=== PATIENT | female | born 2000 | race Caucasian/White ===

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

== ENCOUNTER → 2021-06-06 | Outpatient (CLI) | payer OTHER ==
--- NOTE | 2021-06-06 15:28 | XR ---
EXAMINATION TYPE: XR wrist complete LT DATE OF EXAM: 06/06/2021 COMPARISON: None HISTORY: Wrist pain second metacarpal phalangeal joint x1 week TECHNIQUE: 3 view left wrist FINDINGS: Soft tissues appear normal. Joint spaces are preserved. No acute fracture or dislocation is evident. Follow up exams can be performed 7-10 days from acute trauma for continued pain. If there i s pain at the anatomic snuff box, nuclear medicine bone scan would be recommended for additional eval uation. IMPRESSION: 1. Normal 3 view left wrist.
== END | disposition home or self-care (01) ==
LOC: RADXRYALE 14:43
PROVIDERS: ATTEND Internal Medicine
DX: M25.532 Pain in left wrist (principal)

== ENCOUNTER → 2022-12-11 | Outpatient (CLI) | payer OTHER ==
--- NOTE | 2022-12-11 19:18 | US ---
EXAMINATION TYPE: Ultrasound OB <= 14 week fetus DATE OF EXAM: 12/11/2022 12:29 PM COMPARISON: NONE CLINICAL INDICATION: Female, 22 years old with history of Z36.89 ENCOUNTER FOR OTHER SPECIFIED ANTENA CYNTHIA SCR; Confirm gestational age and viability. EXAM PERFORMED: Transabdominal (TA) EXAM MEASUREMENTS: GESTATIONAL AGE / DATING Physician Established: Not yet established Dates by LMP: (13 weeks/1 day) EDC: 06/17/2023 Dates by First Scan: This is first scan Dates by Current Scan for: (14 weeks/0 days) EDC: 06/11/2023 MATERNAL ANATOMY Uterus: 16.7 x 10.7 x 8.5 cm Right Ovary: 3.2 x 2.1 x 1.9 cm Left Ovary: 3.1 x 2.0 x 1.2 cm Post CDS / Adnexa: Appear wnl Presence of free fluid: None seen Presence of corpus luteal cyst: Not seen Presence of subchorionic bleed: No GESTATION / SURVEY CRL: 7.85 cm (14 weeks/0 days) Yolk Sac (normal less than 6mm): Not seen Heart Rate: 133 bpm Rhythm: Normal IUP: Viable IUP Nuchal Translucency 10-14wks (normal less than 3mm): Not well seen Date of LMP: 09/10/2022 IMPRESSION: 1. Single live intrauterine with estimated gestational age of 13 weeks 1 day by LMP. Age by current ultrasound biometry is slightly greater at 14 weeks 0 days. Correlate as to accuracy of reca ll of LMP. 2. Complete survey recommended at 18-20 weeks.
== END | disposition home or self-care (01) ==
LOC: RADUSWWP 11:53
PROVIDERS: ATTEND Obstetrics & Gynecology
DX: Z36.89 Encounter for other specified antenatal screening (principal); Z3A.13 13 weeks gestation of pregnancy
CPT/HCPCS: 76801

== ENCOUNTER 2023-06-07 23:30 | Inpatient (IN) | payer OTHER ==
[2023-06-07] MEDS ORDERED: OXYTOCIN 10 UNIT/ML 1 ML VIAL IM PRN (23:31)
[2023-06-07] MEDS: LACTATED RINGERS 1,000 ML IV SCH (23:35)
[2023-06-08] MEDS ORDERED: diphenhydrAMINE 25 MG CAP PO PRN (00:20)
[2023-06-08] MEDS ORDERED: diphenhydrAMINE 50 MG/ML 1 ML VIAL IVP PRN (00:20)
[2023-06-08] MEDS ORDERED: MEASLES-MUMPS-RUBELLA VACC/PF 12,500 UNIT/0.5 ML VIAL SQ ONE (00:20)
[2023-06-08] MEDS ORDERED: LANOLIN CREAM 5 GM TUBE TOPICAL PRN (00:20)
[2023-06-08] MEDS ORDERED: HYDROCORTISONE 2.5% RECTAL CREAM 30 GM TUBE RECTAL PRN (00:20)
[2023-06-08] MEDS ORDERED: bisacodyL 10 MG SUPP RECTAL PRN (00:20)
[2023-06-08] MEDS ORDERED: SIMETHICONE 80 MG CHEWABLE PO PRN (00:20)
[2023-06-08] MEDS ORDERED: ACETAMINOPHEN TAB 325 MG TAB PO PRN (00:20)
[2023-06-08] MEDS ORDERED: BENZOCAINE/MENTHOL SPRAY 1 GM/SPRAY AEROSOL TOPICAL PRN (00:20)
[2023-06-08] MEDS ORDERED: ZOLPIDEM 5 MG TAB PO PRN (00:20)
--- NOTE | 2023-06-08 00:26 | P.HPOB ---
History of Present Illness H&P Date: 06/08/23 Chief Complaint: Contractions, leaking fluid Please note this H&P is dictated post delivery due to precipitous delivery in triage. This patient is a pleasant 23-year-old 1 para 0 female estimated date of confinement 06/17/2023 estimated gestational age 38-5/7 weeks who had spontaneous rupture membranes at approximately 10:30 this evening. A she contacted me and was instructed to come to labor and delivery. Upon arrival to labor and delivery patient is found to be complete and delivering the infant's head in the presence of the nursing staff. care is per Dr. Matthews and appears to be uncomplicated. Review of Systems Genitourinary: Reports Menstruation: Reports amenorrhea Past Medical History Past Medical History: Asthma History of Any Multi-Drug Resistant Organisms: None Reported Past Surgical History: No Surgical Hx Reported Past Anesthesia/Blood Transfusion Reactions: No Reported Reaction Past Psychological History: ADD/ADHD Smoking Status: Former smoker Past Alcohol Use History: None Reported Past Drug Use History: None Reported - Past Family History Father Family Medical History: No Reported History Medications and Allergies Home Medications Medication Instructions Recorded Confirmed Type Vit No.179/Iron/Folic 1 each PO DAILY 06/08/23 06/08/23 History [ Tablet] Allergies Allergy/AdvReac Type Severity Reaction Status Date / Time Penicillins Allergy Rash/Hives Verified 06/08/23 00:10 Exam Vital Signs Temp Pulse Resp BP 06/08/23 00:11 96.9 F L 56 L 18 133/80 Intake and Output 06/07/23 06/07/23 06/08/23 14:59 22:59 06:59 Other: Weight 83.915 kg - OBG Physical Exam Abdomen: bowel sounds normal, no diffuse tenderness, no bruit present, no guarding noted, no hepatomegaly, no splenomegaly, no mass Uterus: enlarged Results labs show she is A positive, rubella nonimmune, RPR is nonreactive, HIV is nonreactive, hepatitis B and C are negative, group B strep was negative, maternity T 21 was negative, anatomy and growth ultrasounds have been normal Assessment and Plan Assessment: This is a pleasant 23-year-old 1 para 0 female 38 5/7 weeks' gestation with spontaneous rupture membranes in active labor and precipitous delivery of viable female infant. Please see separate dictated delivery note. (1) 38 weeks gestation of Current Visit: Yes Status: Acute Code(s): Z3A.38 - 38 WEEKS GESTATION OF SNOMED Code(s): 63857456 (2) Precipitous delivery, delivered (current hospitalization) Current Visit: Yes Status: Acute Code(s): O62.3 - PRECIPITATE LABOR SNOMED Code(s): 07404442
--- NOTE | 2023-06-08 00:29 | P.PROBDLV ---
Vaginal Delivery Note - . Vaginal Delivery Note: Normal spontaneous vaginal delivery viable female infant Apgars 8 and 9 delivery time is 2330 hrs. Please see dictated H&P on this patient's admission and presentation. In brief summary this is a pleasant 23-year-old 1 para 0 female 38-5/7 weeks who has spontaneous rupture membranes approximately 1 hour prior to admission. Upon arrival to this hospital patient was . Patient is supposedly delivered in the presence of nursing staff in triage. This is a vigorous viable female infant Apgars 8 and 9 delivery time was 2330 hrs. After delivery of the infant the umbilical cord was doubly clamped and cut. The placenta was spontaneously delivered intact. Inspection of the perineum shows bilateral vaginal lacerations with the left being larger than the right. There is brisk bleeding from these lacerations and therefore infiltrated with 1% lidocaine and using a running locked 3-0 Vicryl reapproximate the lacerations and adequate hemostasis is noted at this time. Estimated blood loss is approximately 400 mL. There are no perineal lacerations and does not appear to have any cervical lacerations. All counts are correct 3. There are no complications. and mother will be taken to the birthing suite in satisfactory condition.
[2023-06-08] MEDS ORDERED: OXYTOCIN 30 UNITS/500 ML NS 30 UNIT in SALINE 1 500ML.BAG IV SCH (00:30)
[2023-06-08 00:51] LABS: Basophils % (A) 0 %; Eosinophils % (A) 0 %; HCT 35.7 % (34.0-46.0); HGB 12.6 gm/dL (11.4-16.0); Lymphocytes # (A) 1.3 k/uL (1.0-4.8); Lymphocytes % (A) 10 %; MCH 33.4 pg (25.0-35.0); MCHC 35.4 g/dL (31.0-37.0); MCV 94.4 fL (80.0-100.0); Mean Platelet Volume 10.8; Monocytes # (A) 0.4 k/uL (0-1.0); Monocytes % (A) 3 %; Neutrophils % (A) 86 %; Platelet Count 184 k/uL (150-450); RBC 3.78 m/uL (3.80-5.40); RDW 12.4 % (11.5-15.5); WBC 12.8 k/uL (3.8-10.6)
[2023-06-08] MEDS ORDERED: CARBOPROST TROMETHAMINE 250 MCG/ML 1 ML AMP IM PRN (00:54)
[2023-06-08] MEDS ORDERED: TERBUTALINE 1 MG/ML VIAL SQ PRN (00:54)
[2023-06-08] MEDS ORDERED: miSOPROStoL 200 MCG TAB PO PRN (00:54)
[2023-06-08] MEDS ORDERED: TRANEXAMIC 1,000 MG/100ML-NACL 1,000 MG in EMPTY BAG 1 BAG IV PRN (00:54)
[2023-06-08] MEDS ORDERED: LIDOCAINE 0.5% (PF) 5 MG/ML (50 ML SDV) SQ PRN (00:54)
[2023-06-08] MEDS ORDERED: METHYLERGONOVINE 0.2 MG/ML 1 ML AMP IM PRN (00:54)
[2023-06-08] MEDS: IBUPROFEN 600 MG TAB PO PRN (01:21)
[2023-06-08] MEDS: SENNOSIDES-DOCUSATE SODIUM 1 EACH TAB PO SCH ×2 (08:41→19:58)
[2023-06-08] MEDS: LACTATED RINGERS 1,000 ML IV SCH ×2 (15:05→18:08)
[2023-06-09 06:32] LABS: Basophils % (A) 0 %; Eosinophils # (A) 0.1 k/uL (0-0.7); Eosinophils % (A) 1 %; HCT 35.3 % (34.0-46.0); HGB 12.6 gm/dL (11.4-16.0); Lymphocytes # (A) 2.9 k/uL (1.0-4.8); Lymphocytes % (A) 31 %; MCHC 35.6 g/dL (31.0-37.0); MCV 95.5 fL (80.0-100.0); Mean Platelet Volume 10.2; Monocytes # (A) 0.4 k/uL (0-1.0); Monocytes % (A) 4 %; Neutrophils # (A) 5.7 k/uL (1.3-7.7); Neutrophils % (A) 62 %; Platelet Count 179 k/uL (150-450); RDW 12.7 % (11.5-15.5); WBC 9.3 k/uL (3.8-10.6)
--- NOTE | 2023-06-09 06:49 | P.PNOBGVD ---
Subjective - Subjective Patient reports: Reports appetite normal, Reports voiding normally, Reports pain well controlled, Reports ambulating normally : doing well Objective - Latest Vital Signs Latest vital signs: Vital Signs Temp Pulse Pulse Resp BP Pulse Ox 06/09/23 00:00 97.6 F 58 L 14 106/63 06/08/23 19:51 98.1 F 76 16 128/82 98 06/08/23 16:00 97.5 F L 69 18 128/75 99 06/08/23 11:42 97.9 F 70 16 117/73 06/08/23 08:00 98.2 F 67 16 126/78 Intake and Output 06/08/23 06/08/23 06/09/23 14:59 22:59 06:59 Other: # Voids 1 - Exam Lungs: bilateral: normal Chest: Normal S1, Normal S2 Extremities: Present: normal Abdomen: Present: normal appearance, soft Uterus: Present: normal, firm - Labs Labs: Abnormal Lab Results - Last 24 Hours (Table) 06/09/23 Range/Units 06:04 RBC 3.70 L (3.80-5.40) m/uL Assessment and Plan Assessment: day #1. Patient is resting without complaints and wishes to go home. Vital signs are stable she's afebrile. Uterus is firm nontender and she is having normal lochia. My impression this is a normal course. Plan is to continue routine care discharge home later today (1) 38 weeks gestation of Current Visit: Yes Status: Acute Code(s): Z3A.38 - 38 WEEKS GESTATION OF SNOMED Code(s): 68669714 (2) Precipitous delivery, delivered (current hospitalization) Current Visit: Yes Status: Acute Code(s): O62.3 - PRECIPITATE LABOR SNOMED Code(s): 37222455
--- NOTE | 2023-06-09 06:52 | P.DS ---
Providers Date of admission: 06/07/23 23:31 Expected date of discharge: 06/09/23 Attending physician: Yolanda Matthews Primary care physician: Stated None - Discharge Diagnosis(es) (1) 38 weeks gestation of Current Visit: Yes Status: Acute (2) Precipitous delivery, delivered (current hospitalization) Current Visit: Yes Status: Acute Hospital Course: Please see dictated H&P intimate delivery note on this patient's admission. In brief summary this pleasant 23-year-old 1 para 0 female 38-4/7 weeks gestation admitted to labor and delivery in active labor. Patient precipitously goes on to deliver a viable female . Please see dictated delivery note. day #1 patient without complaints and wishes to go home. Patient's felt be stable for discharge home follow up with Dr. Forde 6 week Procedures: Normal spontaneous vaginal delivery Patient Condition at Discharge: Good Plan - Discharge Summary New Discharge Prescriptions: New Ibuprofen [Motrin] 600 mg PO Q6HR PRN #40 tab PRN Reason: Mild Pain (Scale 1 To 3) No Action Vit No.179/Iron/Folic [ Tablet] 1 each PO DAILY Discharge Medication List Vit No.179/Iron/Folic [ Tablet] 1 each PO DAILY 06/08/23 [History] Ibuprofen [Motrin] 600 mg PO Q6HR PRN #40 tab 06/09/23 [Rx] Follow up Appointment(s)/Referral(s): Yolanda Matthews DO [Doctor of Osteopathic Medicine] - 07/22/23 4:00 pm (PP 07/22/2023 @4:00 Pm) Patient Instructions/Handouts: Vaginal Delivery (DC) Activity/Diet/Wound Care/Special Instructions: No intercourse or anything per vagina for 6 weeks. Please call if any fever, chills, excessive vaginal bleeding, and/or abdominal pain. Discharge Disposition: HOME SELF-CARE
[2023-06-09] MEDS: SENNOSIDES-DOCUSATE SODIUM 1 EACH TAB PO SCH (09:07)
[2023-06-09 09:23] VITALS: BP 135/82; PULSE 66; RESP 16; TEMP 98.3
[2023-06-09] MEDS: IBUPROFEN 600 MG TAB PO PRN (09:59)
== END 2023-06-09 10:15 | disposition home or self-care (01) | DRG 560 ==
LOC: FBPOP 23:30 → 4FBP 23:31
PROVIDERS: ADMIT Obstetrics & Gynecology; ATTEND Obstetrics & Gynecology
PROC: 10E0XZZ Delivery of Products of Conception, External Approach (ICD-10-PCS; principal; 2023-06-08)
PROC: 0UQG7ZZ Repair Vagina, Via Natural or Artificial Opening (ICD-10-PCS; 2023-06-08)
DX: O42.02 Full-term premature rupture of membranes, onset of labor within 24 hours of rupture (principal); O62.3 Precipitate labor; O99.344 Other mental disorders complicating childbirth; O71.4 Obstetric high vaginal laceration alone; J45.909 Unspecified asthma, uncomplicated; F90.9 Attention-deficit hyperactivity disorder, unspecified type; O99.52 Diseases of the respiratory system complicating childbirth; Z37.0 Single live birth; Z3A.38 38 weeks gestation of pregnancy; Z87.891 Personal history of nicotine dependence; Z88.0 Allergy status to penicillin
CPT/HCPCS: 85025; 86850; 86900; 86901; 90707; 99213

== ENCOUNTER 2024-09-13 09:28 | Inpatient (IN) | payer OTHER ==
[2024-09-13] MEDS ORDERED: miSOPROStoL 200 MCG TAB PO PRN (10:24)
[2024-09-13] MEDS ORDERED: CARBOPROST TROMETHAMINE 250 MCG/ML 1 ML AMP IM PRN (10:24)
[2024-09-13] MEDS ORDERED: METHYLERGONOVINE 0.2 MG/ML 1 ML AMP IM PRN (10:24)
[2024-09-13] MEDS ORDERED: OXYTOCIN 10 UNIT/ML 1 ML VIAL IM PRN (10:24)
[2024-09-13] MEDS ORDERED: TRANEXAMIC 1,000 MG/100ML-NACL 1,000 MG in EMPTY BAG 1 BAG IV PRN (10:24)
[2024-09-13] MEDS ORDERED: LIDOCAINE 0.5% (PF) 5 MG/ML (50 ML SDV) SQ PRN (10:24)
[2024-09-13] MEDS ORDERED: miSOPROStoL 200 MCG TAB RECTAL PRN (10:24)
[2024-09-13] MEDS ORDERED: TERBUTALINE 1 MG/ML VIAL SQ PRN (10:24)
[2024-09-13] MEDS ORDERED: OXYTOCIN 30 UNITS/500 ML NS 30 UNIT in SALINE 1 500ML.BAG IV SCH (10:30)
[2024-09-13] MEDS: LACTATED RINGERS 1,000 ML IV SCH (10:50)
[2024-09-13] MEDS: OXYTOCIN 30 UNITS/500 ML NS 30 UNIT in SALINE 1 500ML.BAG IV SCH (10:59)
[2024-09-13 11:53] LABS: Basophils % (A) 0 %; Eosinophils # (A) 0.1 k/uL (0-0.7); Eosinophils % (A) 1 %; HCT 35.9 % (34.0-46.0); HGB 11.6 gm/dL (11.4-16.0); Lymphocytes # (A) 1.7 k/uL (1.0-4.8); Lymphocytes % (A) 14 %; MCH 30.3 pg (25.0-35.0); MCHC 32.2 g/dL (31.0-37.0); Mean Platelet Volume 10.2; Monocytes # (A) 0.6 k/uL (0-1.0); Monocytes % (A) 5 %; Neutrophils # (A) 9.6 k/uL (1.3-7.7); Neutrophils % (A) 79 %; Platelet Count 239 k/uL (150-450); RBC 3.82 m/uL (3.80-5.40); RDW 13.1 % (11.5-15.5); WBC 12.2 k/uL (3.8-10.6)
--- NOTE | 2024-09-13 14:51 | P.HPOB ---
History of Present Illness H&P Date: 09/13/24 Chief Complaint: leaking of fluid Ms. Dominguez is a 24 year old at 36 weeks gestation with EDC of 10/11/24 bay 13 week who presented this morning with complaints of leaking of fluid. Amnisure was positive and the patient was admitted. The has been complicated by a velamentous cord insertion. Growth ultrasound at 32 weeks revealing an efw of 37%ile. Obstetric history: 1 FTVD work-up: blood type A positive, antibody screen negative, rubella immu ne, VDRL non-reactive, HBsAg negative, HIV negative, HCV Ab non-reactive, gonorrhea negative, chlamydia negative, 1 hour GTT wnl. GBS unknown. Past Medical History Past Medical History: Asthma History of Any Multi-Drug Resistant Organisms: None Reported Past Surgical History: No Surgical Hx Reported Past Anesthesia/Blood Transfusion Reactions: No Reported Reaction Past Psychological History: ADD/ADHD Smoking Status: Never smoker Past Alcohol Use History: None Reported Past Drug Use History: None Reported - Past Family History Father Family Medical History: No Reported History Medications and Allergies Home Medications Medication Instructions Recorded Confirmed Type Vit No.179/Iron/Folic 1 each PO DAILY 06/08/23 09/13/24 History [ Tablet] Allergies Allergy/AdvReac Type Severity Reaction Status Date / Time Penicillins Allergy Rash/Hives Verified 09/13/24 09:44 Exam Vital Signs Temp Pulse Resp BP Pulse Ox 09/13/24 11:15 98.6 F 100 16 118/79 97 09/13/24 10:23 98.6 F 100 16 118/79 97 09/13/24 09:32 98.6 F 100 16 118/79 Intake and Output 09/12/24 09/13/24 09/13/24 22:59 06:59 14:59 Other: Weight 90.718 kg Focused physical exam is performed. This is a healthy-appearing in no apparent distress. Breathing is non-labored. Abdomen is gravid and non-tender. Cervical exam is 150/-2 at the time of admission per the OB RN. Extremities non-tender and non-edematous. heart tones are Category I and tocometer is graphing contractions every 2-4 minutes. Results Result Diagrams: 09/13/24 10:45 Abnormal Lab Results - Last 24 Hours (Table) 09/13/24 Range/Units 10:45 WBC 12.2 H (3.8-10.6) k/uL Neutrophils # 9.6 H (1.3-7.7) k/uL Assessment and Plan Assessment: 24 year old at 36 weeks with SROM, GBS unknown Plan: Admit, clear liquid diet, pitocin per protocol, PCN G for GBS ppx, continuous efm and tocometer. Anticipate vaginal delivery.
[2024-09-13] MEDS ORDERED: BENZOCAINE/MENTHOL SPRAY 1 GM/SPRAY AEROSOL TOPICAL PRN (14:53)
[2024-09-13] MEDS ORDERED: ZOLPIDEM 5 MG TAB PO PRN (14:53)
[2024-09-13] MEDS ORDERED: diphenhydrAMINE 25 MG CAP PO PRN (14:53)
[2024-09-13] MEDS ORDERED: diphenhydrAMINE 50 MG CAP PO PRN (14:53)
[2024-09-13] MEDS ORDERED: SIMETHICONE 80 MG CHEWABLE PO PRN (14:53)
[2024-09-13] MEDS ORDERED: diphenhydrAMINE 50 MG/ML 1 ML VIAL IVP PRN ×2 (14:53)
[2024-09-13] MEDS ORDERED: HYDROCORTISONE 2.5% RECTAL CREAM 30 GM TUBE RECTAL PRN (14:53)
[2024-09-13] MEDS ORDERED: LANOLIN CREAM 1 GM TUBE TOPICAL PRN (14:53)
--- NOTE | 2024-09-13 14:53 | P.PROBDLV ---
Vaginal Delivery Note - . Vaginal Delivery Note: DATE OF SERVICE: 09/13/24 PROCEDURE: Normal Vaginal Delivery ATTENDING: Dr. Rosa Guido MD ESTIMATED BLOOD LOSS: 200 mL FINDINGS: VMI, Apgars 9/9. Weight 6 pounds 3.5 ounces (2820 grams) PROCEDURE: Ms. Dominguez is a 24 year old at 36weeks presenting to labor and delivery for spontaneous rupture of membranes. The has been complicated by a velamentous cord insertion. For further details, please review the admitting H&P. Pitocin was titrated per protocol. The patient was completely dilated at 1429. She delivered precipitously, a viable male infant was delivered at 1431. The infant was placed on the maternal abdomen and bulb suctioned. The infant was noted to be spontaneously crying. Cord was clamped and cut after a 120-second delay. The was handed off to the pediatric team. Placenta was delivered whole with gentle cord traction at 1437. Oxytocin was started to facilitate uterine tone. Uterine fundus was found to be firm and below the umbilicus upon fundal massage. Thorough examination of the cervix, vagina, periurethral area, and perineum revealed no lacerations. The patient is stable and allowed to begin the bonding process.
[2024-09-13] MEDS: ACETAMINOPHEN TAB 500 MG TAB PO SCH (15:12)
[2024-09-13] MEDS: IBUPROFEN 800 MG TAB PO SCH (19:32)
[2024-09-13] MEDS: SENNOSIDES-DOCUSATE SODIUM 1 EACH TAB PO SCH (19:51)
[2024-09-14 00:32] VITALS: RESP 16
[2024-09-14 06:59] LABS: Basophils % (A) 0 %; Eosinophils # (A) 0.1 k/uL (0-0.7); Eosinophils % (A) 1 %; HCT 36.9 % (34.0-46.0); HGB 11.8 gm/dL (11.4-16.0); Lymphocytes # (A) 2.4 k/uL (1.0-4.8); Lymphocytes % (A) 19 %; MCH 30.1 pg (25.0-35.0); MCHC 31.9 g/dL (31.0-37.0); MCV 94.5 fL (80.0-100.0); Monocytes # (A) 0.8 k/uL (0-1.0); Monocytes % (A) 6 %; Neutrophils # (A) 9.3 k/uL (1.3-7.7); Neutrophils % (A) 73 %; Platelet Count 206 k/uL (150-450); RDW 12.9 % (11.5-15.5); WBC 12.7 k/uL (3.8-10.6)
--- NOTE | 2024-09-14 08:10 | P.DS ---
Providers Date of admission: 09/13/24 09:58 Expected date of discharge: 09/14/24 Attending physician: Rosa Guido MD Primary care physician: Stated None Hospital Course: 24 year old now PPD#1 s/p after SROM at 36 weeks. The patient is doing well this morning and had no acute events overnight. She has no complaints this morning. She reports minimal lochia, passing flatus, voiding without difficulty, ambulating, and eating/drinking without nausea or vomiting. Infant doing well at bedside, s/p circumcision. She denies chest pain, shortness of breathing, fevers, or chills overnight. She denies pain or swelling in the legs. restrictions are reviewed with the patient including pelvic rest for 6 weeks. The patient is encouraged to call the office if she experiences any heavy bleeding, foul-smelling discharge, breast complaints, or any if she has any other concerns. She will follow up in the office in 6 weeks for exam. All questions are answered. Patient Condition at Discharge: Good Plan - Discharge Summary New Discharge Prescriptions: No Action Vit No.179/Iron/Folic [ Tablet] 1 each PO DAILY Discharge Medication List Vit No.179/Iron/Folic [ Tablet] 1 each PO DAILY 06/08/23 [History] Follow up Appointment(s)/Referral(s): Rosa Guido MD [STAFF PHYSICIAN] - 6 Weeks Activity/Diet/Wound Care/Special Instructions: Instructions 1. Do not begin any exercise program for 3 weeks. 2. Do not resume sexual relations for 6 weeks or longer if uncomfortable. 3. You may take tub baths or showers at any time. 4. You may use tampons if desired after 6 weeks. 5. Keep any areas repaired with stitches clean and dry. 6. If you are not nursing, wear a good fitting, supportive bra during the day and limit fluid intake for at least 1 week to prevent breast engorgement. 7. Call the office, , within the next week to make appointment for your 6 week checkup if it has not already been made. 8. Report any of the following occurrences to the doctor promptly: a. Heavy, excessive bleeding b. Chills, fever c. Burning or frequency of urination d. Pain or redness and breasts if nursing e. Increasing pain or swelling of vulva (stitches). In addition to the above instructions, the following additional should be followed: 1. No heavy lifting or straining (exercising) until after 6 week checkup. 2. Keep abdominal incision clean and dry: You may wear a dressing if more comfortable. 3. Make office appointment for 2 weeks after delivery date. Discharge Disposition: HOME SELF-CARE
[2024-09-14 08:37] VITALS: BP 128/81; PULSE 84; TEMP 97.8
== END 2024-09-14 15:15 | disposition home or self-care (01) | DRG 560 ==
LOC: FBPOP 09:28 → 4FBP 09:58
PROVIDERS: ADMIT Obstetrics & Gynecology; ATTEND Obstetrics & Gynecology
PROC: 10E0XZZ Delivery of Products of Conception, External Approach (ICD-10-PCS; principal; 2024-09-13)
DX: O42.013 Preterm premature rupture of membranes, onset of labor within 24 hours of rupture, third trimester (principal); O43.123 Velamentous insertion of umbilical cord, third trimester; O99.52 Diseases of the respiratory system complicating childbirth; J45.909 Unspecified asthma, uncomplicated; O99.344 Other mental disorders complicating childbirth; F90.9 Attention-deficit hyperactivity disorder, unspecified type; O62.3 Precipitate labor; Z88.0 Allergy status to penicillin; Z3A.36 36 weeks gestation of pregnancy; Z37.0 Single live birth
CPT/HCPCS: 59025; 85025; 86850; 86900; 86901; 99213